=== PATIENT | male | born 1955 | race Caucasian/White ===

== ENCOUNTER 2016-10-18 00:32 | Inpatient (IN) | payer OTHER ==
[~2016-10-18] VITALS: Ht 177.8 cm; Wt 74.0 kg
[2016-10-18] MEDS ORDERED: SODIUM CHLORIDE FLUSH 10ML SYR IVF ONE (01:30)
[2016-10-18] MEDS ORDERED: MORPHINE SULFATE 4 MG/ML, 1ML IVPush PRN ×2 (01:30→03:30)
[2016-10-18] MEDS ORDERED: MORPHINE SULFATE 4 MG/ML, 1ML ONE (01:30)
[2016-10-18] MEDS ORDERED: ONDANSETRON 2MG/ML, 2ML ONE (01:30)
[2016-10-18] MEDS ORDERED: ONDANSETRON 2MG/ML, 2ML IVPush ONE (01:30)
[2016-10-18] MEDS ORDERED: SODIUM CHLORIDE 0.9% 1,000ML IVBOLUS ONE (01:30)
[2016-10-18 01:41] LABS: ASPARTATE AMINO TRANSFERASE 20 U/L (15-37); BLOOD UREA NITROGEN 17 mg/dL (7-18)
[2016-10-18] MEDS ORDERED: HYDROmorphone 1 MG/ML, 1ML ONE (02:05)
[2016-10-18] MEDS ORDERED: HYDROmorphone 1 MG/ML, 1ML IVPush ONE (02:30)
[2016-10-18] MEDS ORDERED: OMNIPAQUE 350 MG/ML, 100ML BOTTLE ONE (02:33)
[2016-10-18] MEDS ORDERED: SODIUM CHLORIDE 0.9% 1,000 ML IV ONE (03:26)
[2016-10-18] MEDS ORDERED: ONDANSETRON 2MG/ML, 2ML IVPush PRN ×2 (03:30→04:30)
[2016-10-18] MEDS ORDERED: hydrALAzine 20 MG/ML, 1ML IVPush PRN (04:30)
[2016-10-18] MEDS ORDERED: SODIUM CHLORIDE 0.9%, 500ML IVBOLUS ONE (05:00)
[2016-10-18] MEDS: HYDROmorphone 2 MG/ML, 1ML IVPush PRN ×2 (05:08→11:53)
[2016-10-18] MEDS: HEPARIN 5,000 UNITS/ML, 1ML SQ SCH ×3 (05:08→21:02)
[2016-10-18 05:11] VITALS: BP 132/80
[2016-10-18] MEDS: D5%-0.45% NACL 1,000 ML IV SCH ×3 (06:21→22:42)
[2016-10-18 07:40] VITALS: BP 134/78
[2016-10-18 12:33] VITALS: BP 132/78
[2016-10-18 20:23] VITALS: BP 151/71
[2016-10-19 02:18] VITALS: BP 143/77
[2016-10-19] MEDS: HEPARIN 5,000 UNITS/ML, 1ML SQ SCH ×3 (04:38→20:26)
[2016-10-19 06:06] LABS: BLOOD UREA NITROGEN 12 mg/dL (7-18)
[2016-10-19 06:30] VITALS: BP 146/84
[2016-10-19] MEDS: D5%-0.45% NACL 1,000 ML IV SCH ×2 (07:41→16:11)
[2016-10-19 15:42] VITALS: BP 138/81
[2016-10-19] MEDS: HYDROmorphone 2 MG/ML, 1ML IVPush PRN (17:39)
[2016-10-19] MEDS ORDERED: HYDROmorphone 1 MG/ML, 1ML IV ONE (19:00)
[2016-10-19] MEDS ORDERED: OMNIPAQUE 350 MG/ML, 100ML BOTTLE ONE (19:16)
[2016-10-19 19:35] VITALS: BP 134/80
[2016-10-19] MEDS: CIPROFLOXACIN/PMX 400MG/200ML 200 ML IV SCH (22:18)
[2016-10-19] MEDS: METRONIDAZOLE PMX 500MG/100ML 100 ML IV SCH (23:27)
[2016-10-20] MEDS: HYDROmorphone 2 MG/ML, 1ML IVPush PRN ×6 (00:07→20:51)
[2016-10-20 01:51] VITALS: BP 136/82
[2016-10-20] MEDS: D5%-0.45% NACL 1,000 ML IV SCH ×3 (02:44→22:06)
[2016-10-20] MEDS: HEPARIN 5,000 UNITS/ML, 1ML SQ SCH ×3 (04:31→20:59)
[2016-10-20 05:24] LABS: BLOOD UREA NITROGEN 11 mg/dL (7-18)
[2016-10-20] MEDS: METRONIDAZOLE PMX 500MG/100ML 100 ML IV SCH ×3 (06:33→23:13)
[2016-10-20 08:09] VITALS: BP 148/88
[2016-10-20] MEDS: CIPROFLOXACIN/PMX 400MG/200ML 200 ML IV SCH ×2 (09:09→21:02)
[2016-10-20 12:44] VITALS: BP 143/89
[2016-10-20 19:36] VITALS: BP 157/85
[2016-10-21 01:43] VITALS: BP 150/85
[2016-10-21] MEDS: HYDROmorphone 2 MG/ML, 1ML IVPush PRN ×3 (01:44→08:32)
[2016-10-21] MEDS: HEPARIN 5,000 UNITS/ML, 1ML SQ SCH (04:38)
[2016-10-21 05:20] LABS: BLOOD UREA NITROGEN 9 mg/dL (7-18)
[2016-10-21] MEDS ORDERED: POTASSIUM PHOSPHATE 44 MEQ in SODIUM CHLORIDE 0.9% 500 ML IV ONE (06:00)
[2016-10-21] MEDS: D5%-0.45% NACL 1,000 ML IV SCH ×2 (06:29→12:06)
[2016-10-21 07:00] VITALS: BP 159/88
[2016-10-21] MEDS: METRONIDAZOLE PMX 500MG/100ML 100 ML IV SCH ×4 (07:41→22:19)
[2016-10-21] MEDS: CIPROFLOXACIN/PMX 400MG/200ML 200 ML IV SCH ×2 (09:27→21:10)
[2016-10-21] MEDS ORDERED: HYDROmorphone 1 MG/ML, 1ML ONE (11:24)
[2016-10-21] MEDS ORDERED: FENTANYL PF 250 MCG/5ML ONE (11:24)
[2016-10-21] MEDS ORDERED: PROPOFOL 10 MG/ML, 20ML ONE (11:25)
[2016-10-21] MEDS ORDERED: ROCURONIUM 10 MG/ML ONE (11:25)
[2016-10-21] MEDS ORDERED: SUCCINYLCHOLINE 20 MG/ML, 10ML ONE (11:25)
[2016-10-21] MEDS ORDERED: DEXAMETHASONE 4 MG/ML, 1ML ONE (11:25)
[2016-10-21] MEDS ORDERED: METOCLOPRAMIDE 5 MG/ML, 2ML ONE (11:25)
[2016-10-21] MEDS ORDERED: ONDANSETRON 2MG/ML, 2ML ONE (11:25)
[2016-10-21] MEDS ORDERED: ACETAMINOPHEN 325 MG TABLET PO PRN (12:00)
[2016-10-21] MEDS ORDERED: OXYcodone 5 MG/5 ML ORAL.SOL UDC PO PRN (12:00)
[2016-10-21] MEDS ORDERED: ONDANSETRON 2MG/ML, 2ML IVPush PRN ×2 (12:00→16:00)
[2016-10-21] MEDS ORDERED: PROMETHAZINE 25 MG/ML, 1ML IV PRN (12:00)
[2016-10-21] MEDS ORDERED: MIDAZOLAM 1 MG/ML, 2ML IV PRN (12:00)
[2016-10-21] MEDS ORDERED: MEPERIDINE/PF 25MG/0.5ML IVPush PRN (12:00)
[2016-10-21] MEDS ORDERED: hydrALAzine 20 MG/ML, 1ML IV PRN (12:00)
[2016-10-21 13:38] VITALS: BP 136/80
[2016-10-21] MEDS ORDERED: FENTANYL PF 100 MCG/2ML ONE (13:57)
[2016-10-21] MEDS ORDERED: HYDROmorphone 2 MG/ML, 1ML ONE (13:57)
[2016-10-21] MEDS: FENTANYL PF 100 MCG/2ML IV PRN ×2 (14:03→14:12)
[2016-10-21] MEDS ORDERED: LABETALOL 5MG/ML, 20ML ONE (14:04)
[2016-10-21] MEDS: LABETALOL 5MG/ML, 20ML IV PRN ×2 (14:10→14:37)
[2016-10-21] MEDS: HYDROmorphone 1 MG/ML, 1ML IV PRN ×3 (14:27→14:52)
[2016-10-21] MEDS ORDERED: hydrALAzine 20 MG/ML, 1ML IVPush PRN (16:00)
[2016-10-21] MEDS: D5%-0.45NACL+KCL 20MEQ 1,000 ML IV SCH ×2 (17:16→22:19)
[2016-10-21] MEDS: MORPHINE SULFATE 4 MG/ML, 1ML IV PRN ×3 (17:21→20:51)
[2016-10-21 18:26] VITALS: BP 146/88
[2016-10-21] MEDS: FAMOTIDINE 20 MG/2 ML IVPush SCH (21:02)
[2016-10-21 21:15] VITALS: BP 160/89
[2016-10-22] MEDS: MORPHINE SULFATE 4 MG/ML, 1ML IV PRN (00:13)
[2016-10-22 00:14] VITALS: BP 138/85
[2016-10-22] MEDS: METRONIDAZOLE PMX 500MG/100ML 100 ML IV SCH ×4 (04:11→22:59)
[2016-10-22 06:07] LABS: BLOOD UREA NITROGEN 11 mg/dL (7-18)
[2016-10-22 06:12] LABS: ASPARTATE AMINO TRANSFERASE 8 U/L (15-37)
[2016-10-22 07:45] VITALS: BP 138/81
[2016-10-22] MEDS: D5%-0.45NACL+KCL 20MEQ 1,000 ML IV SCH ×2 (08:30→17:01)
[2016-10-22] MEDS: FAMOTIDINE 20 MG/2 ML IVPush SCH ×2 (09:12→21:26)
[2016-10-22] MEDS: CIPROFLOXACIN/PMX 400MG/200ML 200 ML IV SCH ×2 (09:12→21:18)
[2016-10-22] MEDS: ENOXAPARIN 30 MG/0.3 ML SQ SCH ×2 (10:06→21:29)
[2016-10-22 14:31] VITALS: BP 132/78
[2016-10-22 19:16] VITALS: BP 135/75
[2016-10-23 01:25] VITALS: BP 138/84
[2016-10-23] MEDS: D5%-0.45NACL+KCL 20MEQ 1,000 ML IV SCH ×3 (02:46→13:21)
[2016-10-23] MEDS: METRONIDAZOLE PMX 500MG/100ML 100 ML IV SCH ×4 (04:08→22:41)
[2016-10-23 06:56] VITALS: BP 157/85
[2016-10-23] MEDS: FAMOTIDINE 20 MG/2 ML IVPush SCH ×2 (09:26→21:30)
[2016-10-23] MEDS: ENOXAPARIN 30 MG/0.3 ML SQ SCH ×2 (09:26→21:30)
[2016-10-23] MEDS: CIPROFLOXACIN/PMX 400MG/200ML 200 ML IV SCH ×2 (09:51→21:30)
[2016-10-23 14:03] VITALS: BP 152/90
[2016-10-23 19:57] VITALS: BP 152/85
[2016-10-24 01:59] VITALS: BP 145/87
[2016-10-24] MEDS: D5%-0.45NACL+KCL 20MEQ 1,000 ML IV SCH ×2 (02:10→15:13)
[2016-10-24] MEDS: METRONIDAZOLE PMX 500MG/100ML 100 ML IV SCH ×4 (04:29→22:43)
[2016-10-24 06:14] LABS: BLOOD UREA NITROGEN 8 mg/dL (7-18)
[2016-10-24 08:00] VITALS: BP 158/90
[2016-10-24] MEDS: FAMOTIDINE 20 MG/2 ML IVPush SCH ×2 (09:08→21:36)
[2016-10-24] MEDS: CIPROFLOXACIN/PMX 400MG/200ML 200 ML IV SCH ×2 (09:08→21:37)
[2016-10-24] MEDS: ENOXAPARIN 30 MG/0.3 ML SQ SCH ×2 (10:14→21:37)
[2016-10-24] MEDS ORDERED: BISACODYL 10 MG SUPP PR ONE (11:00)
[2016-10-24 12:55] VITALS: BP 154/92
[2016-10-24 19:05] VITALS: BP 164/92
[2016-10-25] MEDS: METRONIDAZOLE PMX 500MG/100ML 100 ML IV SCH ×4 (04:11→23:50)
[2016-10-25 04:16] VITALS: BP 160/92
[2016-10-25] MEDS: D5%-0.45NACL+KCL 20MEQ 1,000 ML IV SCH (06:45)
[2016-10-25 07:03] VITALS: BP 154/96
[2016-10-25] MEDS ORDERED: D5%-0.45NACL+KCL 20MEQ 1,000 ML IV SCH (08:07)
[2016-10-25] MEDS ORDERED: BISACODYL 10 MG SUPP PR ONE (08:30)
[2016-10-25] MEDS: FAMOTIDINE 20 MG/2 ML IVPush SCH (08:56)
[2016-10-25] MEDS: CIPROFLOXACIN/PMX 400MG/200ML 200 ML IV SCH ×2 (08:58→22:10)
[2016-10-25] MEDS: ENOXAPARIN 30 MG/0.3 ML SQ SCH ×2 (08:59→22:10)
[2016-10-25] MEDS ORDERED: BISACODYL 10 MG SUPP PR PRN (09:00)
[2016-10-25] MEDS ORDERED: MORPHINE SULFATE 4 MG/ML, 1ML ONE (14:26)
[2016-10-25] MEDS ORDERED: MORPHINE SULFATE 4 MG/ML, 1ML IVPush PRN ×2 (14:30→16:30)
[2016-10-25 14:48] VITALS: BP 174/98
[2016-10-25] MEDS: SODIUM CHLORIDE FLUSH 3ML SYRINGE IVF SCH ×2 (18:04→22:09)
[2016-10-25 18:54] VITALS: BP 162/92
[2016-10-26 02:30] VITALS: BP 157/90
[2016-10-26 05:02] LABS: BLOOD UREA NITROGEN 10 mg/dL (7-18)
[2016-10-26] MEDS: METRONIDAZOLE PMX 500MG/100ML 100 ML IV SCH (05:22)
[2016-10-26 06:52] VITALS: BP 159/108
[2016-10-26] MEDS ORDERED: D5%-0.45NACL+KCL 20MEQ 1,000 ML IV SCH (08:07)
[2016-10-26] MEDS: FAMOTIDINE 20 MG TABLET PO SCH (09:31)
[2016-10-26] MEDS: ENOXAPARIN 30 MG/0.3 ML SQ SCH ×2 (09:31→21:02)
[2016-10-26] MEDS: BISACODYL 10 MG SUPP PR SCH (09:31)
[2016-10-26] MEDS: SODIUM CHLORIDE FLUSH 3ML SYRINGE IVF SCH ×2 (09:36→21:02)
[2016-10-26 15:45] VITALS: BP 158/93
[2016-10-26] MEDS: OXYcodone/APAP 5/325MG TABLET PO PRN (18:07)
[2016-10-26 19:46] VITALS: BP 163/102
[2016-10-26] MEDS: DOCUSATE 100 MG CAPSULE PO SCH (21:02)
[2016-10-27] MEDS: OXYcodone/APAP 5/325MG TABLET PO PRN (02:20)
[2016-10-27 02:25] VITALS: BP 145/91
[2016-10-27 07:38] VITALS: BP 144/91
[2016-10-27] MEDS: BISACODYL 10 MG SUPP PR SCH (08:51)
[2016-10-27] MEDS: SODIUM CHLORIDE FLUSH 3ML SYRINGE IVF SCH (08:51)
[2016-10-27] MEDS: FAMOTIDINE 20 MG TABLET PO SCH (08:51)
[2016-10-27] MEDS: DOCUSATE 100 MG CAPSULE PO SCH (08:51)
[2016-10-27] MEDS ORDERED: HYDR-3240 PO (10:10)
[2016-10-27] MEDS ORDERED: DOCU-30 PO (10:10)
[2016-10-27] MEDS: ENOXAPARIN 30 MG/0.3 ML SQ SCH (10:35)
[2016-10-27] MEDS ORDERED: OXYC-302 PO (13:20)
[2016-10-27 14:02] VITALS: BP 128/82
== END 2016-10-27 14:00 | disposition home or self-care (01) | DRG 330 ==
LOC: ED 02:58 → EDIP 03:26 → 4NOR 04:30
PROVIDERS: ADMIT Family Medicine; ATTEND Family Medicine
PROC: 0DNS0ZZ (ICD-10-PCS; 2016-10-21)
PROC: 0DT80ZZ Resection of Small Intestine, Open Approach (ICD-10-PCS; principal; 2016-10-21 12:00)
DX: K57.00 Diverticulitis of small intestine with perforation and abscess without bleeding (principal); K56.60 Unspecified intestinal obstruction; I10 Essential (primary) hypertension; D72.829 Elevated white blood cell count, unspecified; M17.12 Unilateral primary osteoarthritis, left knee; E78.5 Hyperlipidemia, unspecified; D18.03 Hemangioma of intra-abdominal structures; G89.29 Other chronic pain; M81.0 Age-related osteoporosis without current pathological fracture; K66.0 Peritoneal adhesions (postprocedural) (postinfection); K76.89 Other specified diseases of liver; Z90.49 Acquired absence of other specified parts of digestive tract; Z87.442 Personal history of urinary calculi; Z88.1 Allergy status to other antibiotic agents; Z88.0 Allergy status to penicillin; Z88.2 Allergy status to sulfonamides
CPT/HCPCS: 36415; 74020; 74177; 80048; 80053; 83690; 83735; 84100; 85025; 85610; 87070; 87075; 87077; 87186; 87205; 88307; 96374; 96375; J0744; J1100; J1170; J1644; J1650; J2270; J2405; J2704; J3010; Q9967; J0330; J2765; J3480; J7030; J7040; S0028

== ENCOUNTER 2018-08-11 05:44 | Emergency (ER) | payer MEDICARE, OTHER ==
[~2018-08-11] VITALS: Ht 177.8 cm; Wt 83.4 kg
[~2018-08-11 05:44] MED LIST: DOCU-131 PO; HYDR-3240 PO; METO10TA82 PO; OXYC-302 PO
[2018-08-11] MEDS ORDERED: AMLO10TA8 PO (06:29)
[2018-08-11] MEDS ORDERED: ONDANSETRON 2MG/ML, 2ML IVPush ONE (06:30)
[2018-08-11] MEDS ORDERED: HYDROmorphone 2 MG/ML, 1ML IVPush PRN (06:30)
[2018-08-11] MEDS ORDERED: SODIUM CHLORIDE FLUSH 10ML SYR IVF ONE (06:30)
[2018-08-11] MEDS ORDERED: ONDANSETRON 2MG/ML, 2ML ONE (06:33)
[2018-08-11] MEDS ORDERED: HYDROmorphone 1 MG/ML, 1ML VIAL ONE (06:33)
--- NOTE | 2018-08-11 06:44 | NUR ---
PT HAVING ABDOMINAL PAIN TO RIGHT SIDE OF ABDOMEN RADIATING TO UMBILICAL. PT HAS HISTORY OF SMALL BOWEL OBSTRUCTION. PT MEDICATED PER EMAR WITH ZOFRAN AND DILAUDID.
--- NOTE | 2018-08-11 06:52 | NUR ---
REPORT GIVEN TO MADDY APONTE.
[2018-08-11 07:48] LABS: BASOPHILS # (AUTO) 0.03 x10^3/uL (0-0.1); BASOPHILS % (AUTO) 0 % (0-1); EOSINOPHILS # (AUTO) 0.12 x10^3/uL (0-0.4); EOSINOPHILS % (AUTO) 1 % (1-7); LYMPHOCYTES # (AUTO) 0.85 x10^3/uL (1-3.4); LYMPHOCYTES % (AUTO) 8 % (22-44); MD NO; MEAN CORPUSCULAR HEMOGLOBIN 28.7 pg (27.5-34.5); MEAN CORPUSCULAR HGB CONC 32.7 g/dL (33.2-36.2); MEAN CORPUSCULAR VOLUME 87.8 fL (81-97); MEAN PLATELET VOLUME 8.9 fL (7.4-10.4); MONOCYTES # (AUTO) 0.93 x10^3/uL (0.2-0.8); MONOCYTES % (AUTO) 9 % (2-9); NEUTROPHILS # (AUTO) 8.17 x10^3/uL (1.8-6.8); NEUTROPHILS % (AUTO) 81 % (42-75); PLATELET COUNT 255 x10^3/uL (130-400); RED BLOOD COUNT 5.24 x10^6/uL (4.38-5.82); RED CELL DISTRIBUTION WIDTH 13.7 % (9.4-14.8)
[2018-08-11 07:58] LABS: ALBUMIN 3.6 g/dL (3.4-5.0); ANION GAP 5 mmol/L (5-15); CALCIUM 9.7 mg/dL (8.5-10.1); CHLORIDE 113 mmol/L (98-107)
[2018-08-11 08:01] LABS: ALANINE AMINOTRANSFERASE 20 U/L (12-78); ALKALINE PHOSPHATASE 160 U/L (45-117); BILIRUBIN,TOTAL 0.2 mg/dL (0.2-1.0); CREATININE 1.05 mg/dL (0.7-1.3)
[2018-08-11] MEDS ORDERED: OMNIPAQUE 350 MG/ML, 100ML BOTTLE ONE (08:25)
[2018-08-11] MEDS ORDERED: KETOROLAC 30 MG/1 ML ONE (09:12)
[2018-08-11] MEDS ORDERED: KETOROLAC 30 MG/1 ML IVPush ONE (09:30)
--- NOTE | 2018-08-11 09:56 | NUR ---
per edmd, ok to have h2o. h2o provided.
--- NOTE | 2018-08-11 10:00 | NUR ---
ua collected and sent.
[2018-08-11 10:06] VITALS: BP 136/82
[2018-08-11 10:17] LABS: MICROSCOPIC INDICATED
--- NOTE | 2018-08-11 10:22 | NUR ---
report from robert olmos. pt resting in room. vss. awaiting edmd update on poc.
--- NOTE | 2018-08-11 10:26 | NUR ---
edmd to bs to update on poc.
[2018-08-11 10:31] LABS: CULTURE INDICATED? NO
== END 2018-08-11 11:02 | disposition home or self-care (01) ==
LOC: ED 06:20
DX: N13.2 Hydronephrosis with renal and ureteral calculous obstruction (principal); R31.9 Hematuria, unspecified
CPT/HCPCS: 36415; 74177; 76700; 80053; 81001; 83690; 85025; 93005; 96374; 96375; 99284; J1885; J2405; Q9967